=== PATIENT | female | born 1940 | race Caucasian/White ===

== ENCOUNTER → 2016-09-15 | Outpatient (CLI) | payer MEDICARE, OTHER ==
[~2016-09-15] MED LIST: will bring list
== END | disposition home or self-care (01) ==
LOC: CFH 08:08
PROVIDERS: ATTEND Internal Medicine Cardiovascular Disease
DX: I08.3 Combined rheumatic disorders of mitral, aortic and tricuspid valves (principal); I00 Rheumatic fever without heart involvement
CPT/HCPCS: 93306

== ENCOUNTER → 2016-11-04 | Outpatient (CLI) | payer MEDICARE, OTHER | END | disposition home or self-care (01) | LOC: CFH 09:14 | PROVIDERS: ATTEND Licensed Practical Nurse | DX: Z13.820 Encounter for screening for osteoporosis (principal); M85.88 Other specified disorders of bone density and structure, other site; N95.8 Other specified menopausal and perimenopausal disorders | CPT/HCPCS: 77080 ==

== ENCOUNTER → 2018-05-02 | Outpatient (CLI) | payer MEDICARE, OTHER | END | disposition home or self-care (01) | LOC: CVU 08:42 | PROVIDERS: ATTEND Family Medicine | DX: M79.661 Pain in right lower leg (principal); M79.662 Pain in left lower leg; R20.2 Paresthesia of skin; R60.9 Edema, unspecified; E78.5 Hyperlipidemia, unspecified; I34.0 Nonrheumatic mitral (valve) insufficiency; Z87.891 Personal history of nicotine dependence | CPT/HCPCS: 93922 ==

== ENCOUNTER → 2018-05-08 | Outpatient (CLI) | payer MEDICARE, OTHER | END | disposition home or self-care (01) | LOC: CFH 09:35 | PROVIDERS: ATTEND Internal Medicine Cardiovascular Disease | DX: I08.1 Rheumatic disorders of both mitral and tricuspid valves (principal); Z85.3 Personal history of malignant neoplasm of breast | CPT/HCPCS: 93306 ==

== ENCOUNTER → 2018-05-22 | Outpatient (CLI) | payer MEDICARE, OTHER | END | disposition home or self-care (01) | LOC: CVU 08:40 | PROVIDERS: ATTEND Family Medicine | DX: R20.2 Paresthesia of skin (principal); R60.9 Edema, unspecified | CPT/HCPCS: 93970 ==

== ENCOUNTER → 2018-11-29 | Outpatient (CLI) | payer MEDICARE, OTHER | END | disposition home or self-care (01) | LOC: CFH 10:14 | PROVIDERS: ATTEND Licensed Practical Nurse | DX: M85.89 Other specified disorders of bone density and structure, multiple sites (principal); N95.8 Other specified menopausal and perimenopausal disorders | CPT/HCPCS: 77080 ==

== ENCOUNTER → 2020-11-10 | Outpatient (CLI) | payer MEDICARE, OTHER | END | disposition home or self-care (01) | LOC: CFH 10:10 | PROVIDERS: ATTEND Internal Medicine | DX: Z13.820 Encounter for screening for osteoporosis (principal); N95.9 Unspecified menopausal and perimenopausal disorder; M85.88 Other specified disorders of bone density and structure, other site | CPT/HCPCS: 77080 ==